=== PATIENT | female | born 1975 | race Caucasian/White ===

== ENCOUNTER 2018-03-02 16:31 | Emergency (ER) | payer SELFPAY ==
[~2018-03-02] VITALS: Ht 162.6 cm; Wt 103.1 kg
[2018-03-02 16:36] VITALS: BP 133/69
[2018-03-02] MEDS ORDERED: METOCLOPRAMIDE 10 MG/2 ML INJ VIAL IM ONE (17:00)
[2018-03-02] MEDS ORDERED: PROMETHAZINE 25 MG/ML VIAL IM ONE (17:00)
[2018-03-02] MEDS ORDERED: LOPERAMIDE 2 MG CAP PO ONE ×2 (17:00→17:22)
--- NOTE | 2018-03-02 17:09 | NUR ---
Dr. Godoy evaluating patient at bedside.
--- NOTE | 2018-03-02 17:10 | NUR ---
42/F BIB DAUGHTER C/O N/V/D & ABDOMINAL PAIN& HEAD ACHE SINCE LAST NIGHT. SKIN IS PINK/WARM/DRY; AAOX4 WITH EVEN AND STEADY GAIT; LUNGS CLEAR BL; HR EVEN AND REGULAR; PT DENIES ANY FEVER, CP, SOB, OR COUGH AT THIS TIME; PATIENT STATES PAIN OF 10/10 AT THIS TIME. PATIENT POSITIONED FOR COMFORT; HOB ELEVATED; BEDRAILS UP X2; BED DOWN. ER MD MADE AWARE OF PT STATUS.
[2018-03-02 18:29] VITALS: BP 116/64
--- NOTE | 2018-03-02 18:29 | NUR ---
Patient discharged with v/s stable. Written and verbal after care instructions given and explained. Patient alert, oriented and verbalized understanding of instructions. Ambulatory with steady gait. All questions addressed prior to discharge. ID band removed. Patient advised to follow up with PMD. Rx of Imodium, Zofran given. Patient educated on indication of medication including possible reaction and side effects. Opportunity to ask questions provided and answered.
== END 2018-03-02 18:29 | disposition home or self-care (01) ==
LOC: MED 16:31
DX: T62.8X1A Toxic effect of other specified noxious substances eaten as food, accidental (unintentional), initial encounter (principal); R11.2 Nausea with vomiting, unspecified; R19.7 Diarrhea, unspecified; Y92.89 Other specified places as the place of occurrence of the external cause
CPT/HCPCS: 81002; 81025; 96372; 99284; J2550; J2765

== ENCOUNTER 2018-07-31 06:35 | Emergency (ER) | payer OTHER ==
[~2018-07-31] VITALS: Ht 167.6 cm; Wt 103.9 kg
--- NOTE | 2018-07-31 06:48 | NUR ---
PT TAKEN TO BED 11
[2018-07-31 06:52] VITALS: BP 119/75
[2018-07-31] MEDS ORDERED: NACL 0.9% 1,000 ML IV ONE (07:00)
[2018-07-31] MEDS ORDERED: ONDANSETRON 4 MG/2 ML VIAL IVP ONE (07:00)
--- NOTE | 2018-07-31 07:02 | NUR ---
PT PRESENTS TO ED WITH C/O GENERALIZED ABDOMINAL PAIN AND N/V. ABD IS SOFT NON TENDER, BOWEL SOUNDS ACTIVE. NO S/S OF DISTRESS NOTED. PT PLACED INTO BED, PENDING MD OGDEN.
[2018-07-31] MEDS ORDERED: DIPHENOXYLATE /ATROPINE 2.5 MG TAB PO ONE (07:10)
--- NOTE | 2018-07-31 07:15 | NUR ---
REPORT TO XUAN JONES
[2018-07-31 07:21] LABS: BASOPHILS % (AUTO) 0.2 % (0.0-2.0); EOSINOPHILS # (AUTO) 0.1 K/uL (0-0.4); EOSINOPHILS % (AUTO) 0.5 % (0.0-4.0); HEMATOCRIT 40.5 % (36-48); HEMOGLOBIN 13.3 g/dL (12.0-16.0); LYMPHOCYTES # (AUTO) 0.5 K/uL (2.5-16.5); LYMPHOCYTES % (AUTO) 3.8 % (20.5-51.1); MEAN CORPUSCULAR HEMOGLOBIN 28 pg (27-31); MEAN CORPUSCULAR HGB CONC 33 g/dL (33-37); MONOCYTES # (AUTO) 0.7 K/uL (0.8-1.0); MONOCYTES % (AUTO) 5.2 % (1.7-9.3); NEUTROPHILS # (AUTO) 11.3 K/uL (1.8-7.7); NEUTROPHILS % (AUTO) 90.3 % (42.2-75.2); PLATELET COUNT (AUTO) 240 K/uL (140-450); RED BLOOD CELL COUNT(AUTO) 4.71 MIL/uL (4.20-5.40); RED CELL DISTRIBUTION WIDTH 14.2 % (11.6-13.7); WHITE BLOOD COUNT (AUTO) 12.5 K/uL (4.8-10.8)
[2018-07-31 07:31] LABS: ANION GAP 10.4 (8-16); CARBON DIOXIDE 26.2 mmol/L (21-32); CREATININE 0.7 mg/dL (0.6-1.3); POTASSIUM 3.6 mmol/L (3.5-5.1)
[2018-07-31 07:37] LABS: ALBUMIN 3.7 g/dL (3.4-5.0); TOTAL BILIRUBIN 0.4 mg/dL (0.0-1.0)
--- NOTE | 2018-07-31 08:00 | NUR ---
PT. RESTING COMFORTABLY IN BED, RR EVEN AND UNLABORED. VSS. HOB ELEVATED. PT. STATES " I FEEL GOOD NOW, MY STOMACH DOESNT HURT AND I AM NOT NAUSEOUS". ER MD DILLARD MADE AWARE.
[2018-07-31 08:24] VITALS: BP 121/66
--- NOTE | 2018-07-31 08:24 | NUR ---
Patient discharged with v/s stable. Written and verbal after care instructions given and explained. Patient alert, oriented and verbalized understanding of instructions. Ambulatory with steady gait. All questions addressed prior to discharge. ID band removed. Patient advised to follow up with PMD. Rx of ZPFRAN ODT , LOMOTIL 2.5MG given. Patient educated on indication of medication including possible reaction and side effects. Opportunity to ask questions provided and answered.
== END 2018-07-31 08:24 | disposition home or self-care (01) ==
LOC: MED 06:35
DX: R11.2 Nausea with vomiting, unspecified (principal); R19.7 Diarrhea, unspecified; I10 Essential (primary) hypertension; R10.9 Unspecified abdominal pain; Z90.49 Acquired absence of other specified parts of digestive tract
CPT/HCPCS: 36415; 80053; 81002; 81025; 85025; 96361; 96374; 99283; J2405; J7030

== ENCOUNTER 2024-01-28 02:00 | Emergency (ER) | payer OTHER ==
[~2024-01-28] VITALS: Ht 157.5 cm; Wt 90.7 kg
[2024-01-28 02:08] VITALS: BP 132/82; PULSE 88; RESP 18; TEMP 98; O2SAT 98
[2024-01-28] MEDS ORDERED: NAPR-337 PO (03:53)
== END 2024-01-28 03:55 | disposition home or self-care (01) ==
LOC: MED 02:00
DX: M54.2 Cervicalgia (principal); R51.9 Headache, unspecified; E11.9 Type 2 diabetes mellitus without complications; I10 Essential (primary) hypertension; Z79.899 Other long term (current) drug therapy; V89.2XXA Person injured in unspecified motor-vehicle accident, traffic, initial encounter; Y93.89 Activity, other specified; Y92.410 Unspecified street and highway as the place of occurrence of the external cause; Y99.8 Other external cause status
CPT/HCPCS: 72050; 72072; 99284